=== PATIENT | female | born 1980 | race Caucasian/White ===

== ENCOUNTER 2018-04-20 09:00 | Outpatient (RCR) | payer MEDICAID ==
[~2018-04-20 09:00] MED LIST: AMOXICILLIN 50500 MG PO; NO HOME MEDICATIONS; ZOFRAN 4MG T4 MG/TAB PO
== END 2018-05-29 10:33 | disposition home or self-care (01) ==
LOC: WSOT 09:00
DX: G56.03 Carpal tunnel syndrome, bilateral upper limbs (principal); F17.210 Nicotine dependence, cigarettes, uncomplicated; Z79.899 Other long term (current) drug therapy

== ENCOUNTER → 2019-01-20 | Outpatient (CLI) | payer MEDICAID | LOC: DIA.ED 11:29 | DX: E11.40 Type 2 diabetes mellitus with diabetic neuropathy, unspecified (principal); I10 Essential (primary) hypertension; E03.9 Hypothyroidism, unspecified; E66.9 Obesity, unspecified | CPT/HCPCS: G0108 ==